=== PATIENT | female | born 2000 | race Caucasian/White ===

== ENCOUNTER 2021-09-20 14:19 | Outpatient (CLI) | payer BC, SELFPAY | END 2021-09-20 23:59 | disposition short-term general hospital (02) | PROVIDERS: Visit Provider Obstetrics & Gynecology | DX: Z36.85 Encounter for antenatal screening for Streptococcus B (principal) | CPT/HCPCS: 87081 ==

== ENCOUNTER 2021-10-06 04:18 | Inpatient (IN) | payer BC, SELFPAY ==
[2021-10-06] VITALS (72 sets, daily range): BP systolic 100–144; BP diastolic 60–93; PULSE 68–138; RESP 16; TEMP 36.2–37.6; O2SAT 93–100; BMI 28.7
[2021-10-06 04:14] LABS: ROM Internal Control Test YES-OK TO RESULT pt. (Internal QC)
[2021-10-06 04:15] LABS: ROM Patient Test POSITIVE (Negative)
[2021-10-06 05:40] LABS: Absolute Lymphocyte Count 2.64 X10^3/uL (0.83-4.51); Absolute Neutrophil Count 9.8 X10^3/uL (2.0-7.7); Basophil# 0.05 X10^3/uL; Basophil% 0.4 % (0-1); Eosinophils% 0.7 % (0-5); Hematocrit 37.2 % (37-47); Hemoglobin 13.1 g/dL (12.0-15.0); Lymphocyte # 2.64 X10^3/ul (0.83-4.51); Lymphocyte % 19.3 % (19-41); Mean Corp Hgb Conc 35.2 g/dL (32-36); Mean Corpuscular Hgb 31.3 pg (27.0-32.0); Mean Corpuscular Volume 88.8 fL (81-99); Mean Platelet Vol. 10.8 fl (6.2-12.0); Monocyte# 1.03 X10^3/uL; Monocyte% 7.5 % (0-10); NRBC Flagged by Analyzer 0 % (0-5); Neutrophil # 9.76 X10^3/uL (2.7-7.7); Neutrophil % 71.3 % (47-70); Platelet Count 256 K/mm3 (150-450); RBC Distribution Width CV 14.7 % (11.6-14.6); RBC Distribution Width SD 47.3 fl (35.1-43.9); Red Blood Count 4.19 M/mm3 (4.2-5.4); White Blood Count 13.7 K/mm3 (4.4-11.0)
[2021-10-06] MEDS: Mag Hydrox/Al Hydrox/Simeth 30 ML UDC PO ×3 (05:41→16:20)
--- NOTE | 2021-10-06 06:52 | HP.PCM_ITS ---
History and Physical Date of Admission: 10/06/21 ACOG ANTEPARTUM RECORD - HISTORY AND PHYSICAL (10/06/2021) Name: JOHNNY JOSEPH History of this : This is a 21 year old [id number] presents at 39 wks + 1 days gestation in labor with SROM. OB Physician: LAVELL JOHNSON MD 's Physician: PED RADIOLOGY ADMINISTRATOR ...................................................................... : 2000 Age: 21 Address: [address] [place] [address] Phone: (H) [phone] (O) [phone] Insurance Carrier: [employer] [id number] Emergency Contact: PARISH JOSEPH [phone] ...................................................................... Final AGGIE: 10/12/21 By Ultrasound: PARITY: (G-Total Pregnancies P-Fullterm,Premature,Induced AB,Spont AB, Ectopics, Multiple,Living) AGGIE CONFIRMATION: By LMP: 01/03/21 Final AGGIE: 10/12/21 OB PROBLEM LIST: ALLERGIC TO ERYTHROMYCIN AND STEVIA! Failed 1hr GTT , did not do 3hr GTT with old provider but did OTBS wnl for 3 weeks Hx of ADHD late transfer of care 35wks Plans epidural and will breastfeed. Quit smoking with RUBELLA NON-IMMUNE ALLERGIES: Erythromycin Base Generalized rash Stevia Tongue swelling MEDICATIONS: Calcium 600 + D(3) 600 mg-5 mcg (200 unit) tablet One pill by mouth once a day 28 mg-800 mcg tablet One pill by mouth once a day Vitamin D3 10 mcg (400 unit) tablet As Directed SOCIAL HISTORY: Smoking - used to smoke but quit Alcohol Use - denies drinking Diet - balanced Diet Lifestyle - Exercise - regular Employer - homemaker Job Description - Illicit Drug Use - denies use of street drugs Sexual Activity - Residence - Currently living with family, just moved Place of - [place], [place] Spouse-Sig Other Name - Parish Joseph Spouse-Sig Other Occupation - Customer [employer] Spouse-Sig Other Phone No - [phone] Children Name(s) - none PRIOR DELIVERY HISTORY DEL DATE GEST LAB WT LB WT OZ TYPE ANES LABOR TX ANTEPARTUM FLOW CHART VISIT GE RTC FU F F TX U U DATE WK MD WKS HT PN HR M SS BP ED WT TX GL D EF ST __ ____ ___ __ __ ___ __ __ __ ___ __ __ __ ___ __ 10 Sep 38 JM 1 38 V + + 124/82 0 180 - - 01 Sep 37 JM 1 37 V + + 128/74 0 177 - - 1 Aug JM 1 36 V + + 118/74 0 173 - - 1 Aug JM 1 35 V + + O 116/82 0 0 - - ANTEPARTUM NOTE(S): Oct 04 2021: Sep 25 2021: doing well Sep 20 2021: doing well Sep 10 2021: establishing care COMPREHENSIVE ANTEPARTUM NOTE(S): Oct 04 2021: Johnny is 38w6d here for PNV with FOB. Good FM states he has slowed his movement slightly but nothing she is concerned about. No edema. Would like cervical Check today. BR Oct 04 2021: 38wk, no complaints. JM Sep 25 2021: Johnny is 37w4d here for PNV, good FM no edema. States she has irrregular contracctions. Last night she had an episode that lasted about 30- 45mins crampy feeling but went away after tylenol and rest. BR Sep 25 2021: 37 weeks, GBS negative. Educated patient on signs and symptoms of labor. JM Sep 24 2021: H taken to OB. tkg Sep 20 2021: Johnny is 36w6d here for PNV, Good FM, slight edema after a long day on her feet. GBS and LARC consent today. BR Sep 20 2021: 36 weeks, GBS collected today. Cervical exam 1 cm. Answered questions about vitamin K injection. Discussed 8-day circumcision. JM Sep 12 2021: TELEHEALTH NOB VISIT, 40 MINUTES IN DURATION. Johnny us a 21 year old with an AGGIE of 10/12/2021, current GA is 35 w 5 d. She reports that she is feeling well, and that she notes good FM. She moved to the area one week ago, and she and her , Parish, are currently staying with family until they find their own place. She and Parish had several questions concerning Vitamin K administration for Sep 10 2021: Johnny is here as a late term transfer. 21 y.o. woman, that was previously seen by an OB up until 28 weeks. Pt presents today w/ concerns regarding vaginal discharge and loss of her mucus plug. Pt states she lost her plug around 09/07/21. Since then she has had intermittent vaginal discharge that is white in color and mild, lower abdominal cramping. Denies presence of clear fluid/ blo Sep 10 2021: 35wk, late transfer of care from [place]. , with FINAL AGGIE: 10/12/21 by 10wk u/s. Records, PNP wnl, A pos blood type. Anatomy u/s with limited spine and finger views, no follow up. Failed 1hr GTT 187, provider did not have her do 3hr GTT but took OTBS for 3 weeks all wnl. No signs of GDMA. Growth u/s today AGA, vertex. Leakage of fluid, ferning and nitrizine negative. GBS next visit. JM REVIEW OF SYSTEMS: GENERAL - Denies fever, or chills SKIN - Denies rash, new skin lesions, or change in moles EYES - Denies blurred vision, or change in visual acuity EARS - Denies ear pain, or difficulty hearing NOSE - Denies nasal congestion, discharge, or bleeding MOUTH - Denies sore throat, or difficulty swallowing NECK - Denies pain or swelling RESPIRATORY - Denies shortness of breath, cough, wheezing CARDIOVASCULAR - Denies palpitations, chest pain, orthopnea, PND, peripheral edema, syncope or claudication GASTROINTESTINAL - Denies nausea, vomiting, diarrhea, constipation, Denies abdominal pain, melena and or bright red blood GENITOURINARY - Denies dysuria, frequency of urination, urgency, or hesitancy MUSCULOSKELETAL - Denies joint or muscle pain, or back pain NEUROLOGICAL - Denies localized numbness, weakness, or tingling PSYCHIATRIC - Denies depression, anxiety, substance abuse or suicide attempts ENDOCRINE - Denies heat or cold intolerance, weight loss or gain, increasing thirst HEMATO-IMMUNOLOGIC - Denies easy bruising, bleeding, oral ulcerations or recurrent infections GENETICS SCREENING: Age 35+ years: No Thalassemia: No Neural Tube Defect: No Down Syndrome: No TERRY-SACHS: No Sickle Cell Disease: No Hemophilia: No Musc. Dystrophy: No Cystic Fibrosis: No-declines screening Monica Chorea: No Mental Retardation: No Fragile X: No Other genetic: No Other defects: No SABs/still births: No Drugs since LMP: No INFECTION HISTORY: High risk AIDS: No High risk Hepatitis: No Exposed to TB: No Exposed to Herpes: No Rash/viral illness since LMP: No History of STD: No MENSTRUAL HISTORY: *Menses Amount/Duration: normal amountMenses Regularity: RegularFrequency: monthlyMenarche (Age Onset): 10* PAST SUMMARY: PARITY: 1. Total Pregnancies............ 1 2. Full Term Pregnancies........ 0 3. Premature.................... 0 4. Abortions - Induced.......... 0 5. Abortions - Spontaneous...... 0 6. Ectopics..................... 0 7. Multiple Births.............. 0 8. Living Children.............. 0 PHYSICAL EXAMINATION General Appearence: 21 yo female in no acute distress Vital Signs: AF, VSS Heart: RRR without rubs or gallops Lungs: CTA x 2 Breasts: deferred Abdomen: gravid Pelvis: Cervix: Presentation: cephalic Station: Fetus: Size: AGA Movement: present Heart: present LAB TEST(S) ORDERED SINCE:01/15/21 10/06/2021 TYPE AND SCREEN 10/06/2021 COVID 19 AG RAPID (RN COLLECT) 10/06/2021 CBC W/DIFF, AUTOMATED 10/06/2021 (ROM) RUPTURE OF MEMBRANES 09/23/2021 RULE OUT BETA STREP (GRP. B) 09/12/2021 Varicella 09/12/2021 Initial OB Labs 09/12/2021 GC-Chlamydia 09/12/2021 24-35 Week Labs == ==== Order Observation Description Value Ref_Range A * Site == ==== COVID 19 AG RAP NOTE [facility] Labor [facility]~[address] [place], [id number]~ TYPE AND SCRE AB SCREEN GEL NEGATIVE ML CBC W/DIFF, AUT NOTE [facility] CBC W/DIFF, AUT WBC 13.7 K/mm3 4.4-11.0 H ML CBC W/DIFF, AUT RBC 4.19 M/mm3 4.2-5.4 L ML CBC W/DIFF, AUT HGB 13.1 g/dL 12.0-15.0 ML CBC W/DIFF, AUT HCT 37.2 37-47 ML CBC W/DIFF, AUT MCV 88.8 fL 81-99 ML CBC W/DIFF, AUT MCH 31.3 pg 27.0-32.0 ML CBC W/DIFF, AUT MCHC 35.2 g/dL 32-36 ML CBC W/DIFF, AUT RDW CV 14.7 11.6-14.6 H ML CBC W/DIFF, AUT RDW SD 47.3 fl 35.1-43.9 H ML CBC W/DIFF, AUT PLT 256 K/mm3 150-450 ML CBC W/DIFF, AUT MPV 10.8 fl 6.2-12.0 ML CBC W/DIFF, AUT NEUT% 71.3 47-70 H ML CBC W/DIFF, AUT LY% 19.3 19-41 ML CBC W/DIFF, AUT MONO% 7.5 0-10 ML CBC W/DIFF, AUT EO% 0.7 0-5 ML CBC W/DIFF, AUT BASO% 0.4 0-1 ML CBC W/DIFF, AUT IG% 0.800 0.0-0.9 ML IG% - Immature Granulocytes (promyelocytes, myelocytes and metamyelocytes) > 1% indicates that a LEFT SHIFT is Present. CBC W/DIFF, AUT ABSOLUTE NEUT 9.8 X10 3/uL 2.0-7.7 H ML CBC W/DIFF, AUT ABSOLUTE LYMPH 2.64 X10 3/uL 0.83-4.51 ML CBC W/DIFF, AUT NUCLEATED RBC 0 0-5 ML (ROM) RUPTURE O NOTE MUSA (ROM) RUPTURE O ROM POSITIVE Negative A ML Amniotic fluid present indicates rupture of Membranes. RESULTS CALLED TO Shavonne ALBRIGHT 10/06/21 0414 Bebeto Manzano. REPORT READ BACK BY SAME. RULE OUT BETA S NOTE MUSA Initial OB Labs Blood Type A Initial OB Labs Rh Type POSITIVE Initial OB Labs Antibody Screen NEGATIVE Negative Initial OB Labs Hemoglobin Initial OB 13.7 Initial OB Labs Hematocrit Initial OB 40.6 Initial OB Labs PLT 231 Initial OB Labs Rubella NOT IMMUNE Immune Initial OB Labs VDRL NEG Non Reactive Initial OB Labs HBsAg NEG Negative Initial OB Labs HIV Test NEG Negative Initial OB Labs Urine Protein TRACE Negative Initial OB Labs Urine Glucose NEG Negative 24-35 Week Labs HCT/HGB 12.1/35.4 24-35 Week Labs 1 Hour Post Glucola 187 GC-Chlamydia Chlamydia NEGATIVE Negative GC-Chlamydia GC NEGATIVE No Growth Varicella Varicella IgG IMMUNE Immune *Negative results from patients with symptom onset beyond five days should be treated as presumptive and confirmed by a molecular assay if clinically necessary. Negative results should not be used as the sole basis for treatment or for patient management. COVID 19 AG RAPID (RN COLLECT) *Positive results do not differentiate between SARS-CoV and SARS-CoV-2. If differentation of the specific SARS virus is desired an additional sample and an additional order is required. COVID 19 AG RAPID (RN COLLECT) * This test has not been FDA cleared or approved; the test has been authorized by FDA under an Emergency Use Authorization (EAU) for use by laboratories certified under CLIA that meet the requirements to perform moderate, high, or waived complexity tests. COVID 19 AG RAPID (RN COLLECT) Normal Reference Range: Negative SARS-CoV-2 (COVID 19) Negative RAPID METHOD Quidel Jazlyn Analyzer GHADA A POSITIVE Group B Beta Streptococcus is not isolated. == ==== Impression /Plan: 39 wks + 1 days intrauterine in labor with SROM. Preparations in progress for delivery.
[2021-10-06] MEDS: 0.9% Saline Lock 10 ML Syringe IV (08:20)
[2021-10-06] MEDS: Lactated Ringers 500 ML 999 ML IV ×3 (08:22→15:30)
[2021-10-06] MEDS: Lactated Ringers 1,000 ML 50 ML IV (08:30)
[2021-10-06] MEDS: Ondansetron 4 MG/2 ML Vial IV ×2 (09:24→15:12)
[2021-10-06] MEDS: fentaNYL-bupivacaine (epidural) 100 ML BAG EPIDURAL ×2 (10:15→14:31)
[2021-10-06] MEDS: Oxytocin 30 units/NS 500 ml 30 UNITS/500 ML IV.SOLN IV (12:23)
[2021-10-06] MEDS: Lactated Ringers 1,000 ML 200 ML IV (14:43)
--- NOTE | 2021-10-06 16:16 | NURSING ---
Norris Catheter found in pt bed. No saline in bulb.
[2021-10-06] MEDS: Oxytocin 30 units/NS 500 ml 30 UNITS/500 ML IV.SOLN 334 UNITS IV (18:31)
--- NOTE | 2021-10-06 18:43 | EX.PCM.OBRPT ---
Maternal Data Information Final AGGIE: 10/12/21 Gestational age: 36w1d Vaginal Delivery Maternal Presentation Maternal Presentation: Active Labor and Spontaneous Rupture of Membranes Operative Information Date of Procedure: 10/06/21 Pre-Operative Diagnosis: IUP Post-Operative Diagnosis: IUP Surgery / Procedure Performed: Spontaneous Vaginal Delivery Type of Anesthesia: Epidural Estimated Blood Loss: 250 cc Findings Description of Procedure: Spontaneous vaginal delivery of a viable male infant with Apgars of 8/9 from an occiput anterior presentation with clear amniotic fluid and normal three-vessel placenta. No episiotomy. Second-degree midline laceration and right sulcal tear repaired with 3-0 Rapide suture under epidural. Sponges okay. Delivery physician: Phani Orozco MD. Presentation: Vertex Amniotic Membrane Rupture Type: Spontaneous Amniotic Fluid Description: Clear Placental Delivery Description: Spontaneous Placenta Disposition: [facility] Cord Vessel Description: 3 Vessels Cord Entanglement: None A Gender: Male (1 minute): 8 (5 minute): 9 Post Vaginal Delivery Medications Given After Delivery: IV Pitocin Episiotomy Description: None Laceration: Midline and 2nd degree Complication Complications: None
[2021-10-06] MEDS: Ibuprofen 600 MG Tablet PO (19:05)
[2021-10-06] MEDS: Benzocaine/Lanolin/Aloe Vera 1 SPRAY EACH TOPICAL (19:53)
[2021-10-06] MEDS: Acetaminophen 500 MG Tablet 1000 MG PO (19:53)
[2021-10-07] MEDS: Ibuprofen 600 MG Tablet PO ×4 (02:47→20:50)
[2021-10-07 04:31] VITALS: BP 98/51; PULSE 85; RESP 16; TEMP 36.6
[2021-10-07 08:45] VITALS: BP 126/81; PULSE 95; RESP 16; TEMP 37; O2SAT 100
[2021-10-07] MEDS: Acetaminophen 500 MG Tablet 1000 MG PO ×3 (08:55→23:51)
--- NOTE | 2021-10-07 11:48 | PCM.PN.OB ---
Subjective Subjective Patient without complaints. Some issues breast-feeding because of baby being tongue-tied. Baby in special care nursery due to some blood sugar issues which are resolving. Wants to wait until tomorrow to go home. Objective Data Objective Data Vital Signs: Vital Signs Temp Pulse Resp BP Pulse Ox 98.6 F 95 16 126/81 H 100 10/07/21 08:45 10/07/21 08:45 10/07/21 08:45 10/07/21 08:45 10/07/21 08:45 Oxygen Delivery Method Room Air Weight: 178 lb Body Mass Index (BMI) 28.7 Intake & Output: Intake and Output for Last 24 Hours 10/05/21 10/06/21 10/07/21 23:59 23:59 23:59 Intake Total 3679.48 / 3679.48 Output Total 1400 / 1400 500 / 500 Balance 2279.48 / 2279.48 -500 / -500 Lab / Micro Data Result Diagrams: 10/06/21 05:20 Micro: Microbiology 10/06/21 05:25 Nasal Secretion SARS-CoV-2 Antigen (Rapid) - Final Assessment & Plan (1) Spontaneous vaginal delivery: PLAN: Doing well day #1 status post routine spontaneous vaginal delivery. Continuing present care.
[2021-10-07 14:00] VITALS: BP 102/72; PULSE 100; RESP 16; TEMP 37.1
[2021-10-07] MEDS: Senna/Docusate Sodium 1 Tablet PO (14:42)
[2021-10-07 22:01] VITALS: BP 94/64; PULSE 88; RESP 16; TEMP 37.1
[2021-10-08 02:48] VITALS: BP 130/84; PULSE 84; RESP 16; TEMP 36.7
[2021-10-08] MEDS: Ibuprofen 600 MG Tablet PO ×2 (02:50→08:42)
[2021-10-08] MEDS: Acetaminophen 500 MG Tablet 1000 MG PO (06:23)
[2021-10-08 08:00] VITALS: BP 115/76; PULSE 123; RESP 14; TEMP 36.7
--- NOTE | 2021-10-08 08:39 | PCM.PN.OB ---
Subjective Subjective Patient without complaints. Minimal vaginal bleeding. Baby doing well and may be able to go home today. Objective Data Objective Data Vital Signs: Vital Signs Temp Pulse Resp BP Pulse Ox 98.0 F 84 16 130/84 H 100 10/08/21 02:48 10/08/21 02:48 10/08/21 02:48 10/08/21 02:48 10/07/21 08:45 Oxygen Delivery Method Room Air Weight: 178 lb Body Mass Index (BMI) 28.7 Intake & Output: Intake and Output for Last 24 Hours 10/06/21 10/07/21 10/08/21 23:59 23:59 23:59 Intake Total 3679.48 / 3679.48 Output Total 1400 / 1400 500 / 500 Balance 2279.48 / 2279.48 -500 / -500 Lab / Micro Data Result Diagrams: 10/06/21 05:20 Micro: Microbiology 10/06/21 05:25 Nasal Secretion SARS-CoV-2 Antigen (Rapid) - Final Assessment & Plan (1) Spontaneous vaginal delivery: PLAN: Doing well day #2 status post routine spontaneous vaginal delivery. Will discharge to hotel or home later today. Routine home-going instructions given.
--- NOTE | 2021-10-08 08:41 | PCM.DC ---
Discharge Instructions Diet Discharge Diet: No restrictions Activity Discharge Activity: May Drive (In 1 to 2 days if not taking narcotic pain medication), May Shower and May Take a Tub Bath May resume sexual activity in: 4-6 weeks Additional Activity Instructions:: Nothing in the vagina for 4-6 weeks. You may return to work/school in 6 weeks. Dressing / Incision Call your doctor if you observe: Fever of 101 or Higher, Inability to urinate, Inability to have a bowel movement and Using more than 1 pad per hour Follow Up Care Please Follow Up With: Edi Nice MD When: Call [phone] to make an appointment with your doctor in 6 weeks. Test Results: Test results from this visit will be discussed in further detail at your follow-up appointment, if applicable. Discharge Plan Admission Admit Date/Time: 10/06/21 04:18 Primary Reason for Your Visit: Vaginal Delivery Attending Provider: Phani Orozco Discharge Orders/Prescriptions Prescriptions: No Action calcium 600 mg Capsule 750 mg PO DAILY RF: 0 1 mg Tablet 1 tab PO DAILY RF: 0 magnesium 250 mg Tablet 250 mg PO DAILY RF: 0 Vitamin D (with calcium) 1 tab PO.IVFORM DAILY RF: 0 Disposition Disposition (needs filled in before D/C Order can be placed): Home, Self Care
--- NOTE | 2021-10-09 11:29 | CASEMGMT ---
Social Work Assessment Labor and Delivery Unit ? ? Date of Referral: 10/06/2021 Time of Referral: 8:45pm Referred by: Dr. Iris Greer Date of Intervention:10/09/21 Time of Intervention: 10:40am ? Referral site: [facility] ?? Reason for Referral: baby in special care nursery ? PSYCHOSOCIAL HISTORY: ? Presenting situation: baby in special care nursery due to hypoglycemia ? History obtained from: MOB, FOB ? Household composition: MOB, FOB, baby Edi, MOB's sister. They just relocated from [place] and are staying w/MOB's sister at present ? Patient's parent/guardian status: MOB and FOB are guardians of baby Edi ? Medical History: MOB: ADHD. Baby: Born 10/06/21 at 6:12pm, 3075 grams, Apgars 8 and 9 at 1 and 5 minutes. Baby with hypoglycemia at . ? Developmental Concerns: None at this time, information given on Help Me Grow if needed in the future ? Educational Status: MOB completed some college, FOB completed high school ? Health Care Coverage: [place] ? Financial Status: No concerns, FOB works from home, MOB plans to stay home w/the baby Supplies: MOB and FOB have all needed supplies including clothing, diapers, crib, bassinet, bottles, pump, car seat ? Childcare/Caregiver(s): MOB's family(sisters, mother). FOB's mother in [place] but supportive. They moved here to be closer to MOB's mother and have more support. ? Transportation: They have a car. ? Programs/Agencies Involved: None Children's Services/Legal Issues: None ? Behavioral Health Issues: FOB--none. MOB--has ADHD. She was on Adderall but went off it once . She does not plan on going back on now, as she is not working and does not feel she needs it at this time. Substance abuse history: None for FOB or MOB ? Family Stressors: None reported ? Support Systems: MOB's family and FOB's family. MOB states her mom is a psychologist and is good about watching for signs of mental health struggles--she is the one that saw MOB had ADHD. FOB's mother is a nurse and is supportive in regard to medical concerns. They state they are grateful to have the support of their moms. ? depression/shaken baby/Safe sleeping: SW gave them information and reviewed information on Safe Sleeping, Shaken Baby, Help Me Grow, Depression and Anxiety. SW reviewed w/parents signs and symptoms of . SW encouraged MOB to speak to physician if she starts having symptoms. SW also gave MOB list of local mental health agencies should she need this at any time, and pointed out the number to [facility] as they have a 24 hour hotline. ? ? Assessment: SW met w/FOB and MOB in SCN. MOB at the time. FOB very attentive to MOB. Both responded appropriately and fully to all SW questions. Both very appropriate w/baby. The baby started crying, FOB took baby to do skin to skin. MOB and FOB thanked SW for meeting w/them. ? Plan: Baby to go home w/MOB and FOB today. No social service concerns at this time, no further social service needs warranted at this time. ?? TAE Shukla
== END 2021-10-08 09:50 | disposition home or self-care (01) | DRG 807 ==
LOC: WPOUT 04:19 → WP 04:19
PROVIDERS: Admitting Provider Obstetrics & Gynecology; Visit Provider Obstetrics & Gynecology
DX: O70.1 Second degree perineal laceration during delivery (principal); Z37.0 Single live birth; Z87.891 Personal history of nicotine dependence; Z3A.39 39 weeks gestation of pregnancy
CPT/HCPCS: 59025; 59050; 84112; 85025; 86850; 86900; 86901; 87426; 99218; 99406; J7120; A4216; G0378; J2405